=== PATIENT | female | born 1990 | race Caucasian/White ===

== ENCOUNTER 2018-08-16 06:57 | Inpatient (IN) | payer OTHER ==
[2018-08-16] MEDS ORDERED: Misoprostol 25 MCG (1/4 of 100 MCG) Tab VAG ONE (07:28)
[2018-08-16] MEDS ORDERED: Sodium Chloride 0.9% 10 ML Syringe FLUSH ONE (08:25)
--- NOTE | 2018-08-16 09:04 | PN ---
DATE SEEN: 08/16/2018 SUBJECTIVE: This is a 28-year-old, G1, P0, group B negative, EDC on 08/11, 40+ weeks, here for induction. Otherwise healthy. OBJECTIVE: heart tones 150s, reactive. Cervix is 80, 1 to 2, -3 anterior. ASSESSMENT: Group B negative, here for induction. PLAN: Check the patient and then place with the patient's permission. Risks and benefits were explained and I put Cytotec in and then will move on to Pitocin after 3 to 4 hours period. So, vaginal delivery is anticipated. /[id number] PE/MODL
[2018-08-16] MEDS ORDERED: Propofol 200 MG/20 ML SDV IV ONE (12:25)
[2018-08-16] MEDS ORDERED: Midazolam 1 MG/ML 2 ML SDV IV ONE (12:25)
--- NOTE | 2018-08-16 14:05 | PN ---
DATE SEEN: 08/16/2018 SUBJECTIVE: The patient is reji after the Cytotec. She says she can feel, though not terribly uncomfortable. OBJECTIVE: Cervix is 2 cm, 80, minus 2. ASSESSMENT: Induction, post dates. PLAN: AROM, clear fluid. Wait for 1 to 2 hours, and if she does not get into labor, then start oxytocin, and vaginal delivery is anticipated. /[id number] PE/MODL
[2018-08-16] MEDS: Lactated Ringers 1,000 ML IV SCH ×3 (14:43→18:04)
[2018-08-16] MEDS ORDERED: Nalbuphine 10 MG/1 ML Vial IVPUSH PRN (15:04)
[2018-08-16] MEDS ORDERED: FENTANYL IV ONE (16:10)
[2018-08-16] MEDS ORDERED: ROPIVACAINE IV ONE (16:10)
--- NOTE | 2018-08-16 16:53 | PCM.PNLD ---
Labor Progress Note - VS & Meds Vital Signs: Last Vital Signs Temp 97.6 F 08/16/18 07:06 Pulse 68 08/16/18 16:10 Resp 20 08/16/18 16:10 BP 113/65 08/16/18 16:10 Pulse Ox 100 08/16/18 16:10 Active Medications: Current Medications Oxytocin/Sodium Chloride (Pitocin In Ns 20 Units/1,000 Ml) 20 unit in 1,000 mls @ 6 mls/hr IV TITRATE AFSHIN; Protocol Lactated Ringer's (Ringers, Lactated) 1,000 mls @ 125 mls/hr IV ASDIRECTED AFSHIN Last Admin: 08/16/18 14:43 Dose: 125 mls/hr Nalbuphine HCl (Nubain) 10 mg IVPUSH Q4H PRN PRN Reason: Pain Discontinued Medications Misoprostol (Cytotec) 25 mcg VAG ONETIME ONE Stop: 08/16/18 07:29 Last Admin: 08/16/18 08:14 Dose: 25 mcg Sodium Chloride (Saline Flush) 10 ml FLUSH ONETIME ONE Stop: 08/16/18 08:26 Last Admin: 08/16/18 08:20 Dose: 10 ml - Uterine Contractions Uterine Monitoring Mode: External [place] Contraction Frequency (min): 2-4 Contraction Duration (sec): 30-60 Contraction Intensity: Moderate to Strong Uterine Resting Tone: Soft - Vaginal Exam Dilation (cm): 6 Effacement (Percent): 100 Station: 0 Cervical Position: Midposition Sterile Vaginal Exam Performed By: Balbina Esparza - Labor Progress (Free Text) Labor Progress: Epidural in and the pt is comfortable.
[2018-08-16] MEDS ORDERED: Naloxone 0.4 MG/ML SDV IVPUSH PRN (17:24)
[2018-08-16] MEDS ORDERED: diphenhydrAMINE 50 MG/ML SDV IV PRN (17:24)
[2018-08-16] MEDS ORDERED: Ondansetron 4 MG/2 ML SDV IVPUSH PRN (17:24)
[2018-08-16] MEDS ORDERED: ePHEDrine 50 MG/ML SDV IVPUSH PRN (17:24)
[2018-08-16] MEDS ORDERED: Promethazine 6.25 MG in Sodium Chloride 0.9% 50 ML IV PRN (17:24)
[2018-08-16] MEDS ORDERED: Promethazine 12.5 MG in Sodium Chloride 0.9% 50 ML IV PRN (17:24)
[2018-08-16] MEDS ORDERED: Lactated Ringers 500 ML IV SCH (17:30)
--- NOTE | 2018-08-16 19:35 | PCM.DEL ---
L & D Note - General Info Date of Service: 08/16/18 - Delivery Note Labor: Augmented by ARM (And Cytotec) Delivery Outcome: Livebirth Presentation: Left Occiput Anterior (EDIN) Nuchal Cord: None Anesthesia Type: Epidural, Local Anesthetic: Lidocaine (Xylocaine) 0.5% Plain Local Anesthetic Volume: 4cc Amniotic Fluid Description: Clear Laceration: 2nd Degree Suture type: Vicryl Suture size: 4-0 Placenta: Intact, Spontaneous Cord: 3 Vessels Resuscitation Needed: No [place]: Suctioned - General Info Date of Service: 08/16/18 Admission Dx/Problem (Free Text): 28-year-old EDC 08/12/1938 plus weeks comes for induction. Patient was given Cytotec then AROM. Went to complete and had an epidural. Baby is a little away. No nuchal cord. EBL less than 500. She had 2 periurethral lacerations was repaired with 4-0 Vicryl and second degree tear that was apparent with 4-0 Vicryl. Complications none. - Patient Data Vitals - Most Recent: Last Vital Signs Temp 97.6 F 08/16/18 07:06 Pulse 68 08/16/18 16:10 Resp 20 08/16/18 16:10 BP 113/65 08/16/18 16:10 Pulse Ox 100 08/16/18 16:10 Weight - Most Recent: 150 lb I&O - Last 24 Hours: Intake & Output 08/16/18 08/16/18 08/16/18 06:59 14:59 22:59 Output Total 400 150 Balance -400 -150 Med Orders - Current: Current Medications Diphenhydramine HCl (Benadryl) 25 mg IV ASDIRECTED PRN PRN Reason: Pruritus Ephedrine Sulfate (Ephedrine Sulfate) 5 mg IVPUSH ASDIRECTED PRN PRN Reason: Hypotension Oxytocin/Sodium Chloride (Pitocin In Ns 20 Units/1,000 Ml) 20 unit in 1,000 mls @ 6 mls/hr IV TITRATE AFSHIN; Protocol Lactated Ringer's (Ringers, Lactated) 1,000 mls @ 125 mls/hr IV ASDIRECTED AFSHIN Last Admin: 08/16/18 18:04 Dose: 999 mls/hr Lactated Ringer's (Ringers, Lactated) 1,000 mls @ 999 mls/hr IV BOLUS AFSHIN Promethazine HCl 6.25 mg/ (Sodium Chloride) 50.25 mls @ 200 mls/hr IV Q4H PRN PRN Reason: Nausea/Vomiting Promethazine HCl 12.5 mg/ (Sodium Chloride) 50.5 mls @ 200 mls/hr IV Q6H PRN PRN Reason: Nausea/Vomiting Nalbuphine HCl (Nubain) 10 mg IVPUSH Q4H PRN PRN Reason: Pain Naloxone HCl (Narcan) 0.1 mg IVPUSH ONETIME PRN PRN Reason: Sedation Ondansetron HCl (Zofran) 4 mg IVPUSH Q6H PRN PRN Reason: Nausea/Vomiting Discontinued Medications Misoprostol (Cytotec) 25 mcg VAG ONETIME ONE Stop: 08/16/18 07:29 Last Admin: 08/16/18 08:14 Dose: 25 mcg Sodium Chloride (Saline Flush) 10 ml FLUSH ONETIME ONE Stop: 08/16/18 08:26 Last Admin: 08/16/18 08:20 Dose: 10 ml - Problem List & Annotations (1) Vaginal delivery SNOMED Code(s): 513121593 Code(s): O80 - ENCOUNTER FOR FULL-TERM UNCOMPLICATED DELIVERY Status: Acute Current Visit: Yes - Problem List Review Problem List Initiated/Reviewed/Updated: Yes - My Orders Last 24 Hours: My Active Orders 08/16/18 07:00 Admission Status [Patient Status] [ADT] Routine 08/16/18 07:06 Communication Order [RC] ASDIRECTED Communication Order [RC] ASDIRECTED Communication Order [RC] ASDIRECTED Communication Order [RC] ASDIRECTED Non Stress Test [RC] Click to Edit Notify Provider [RC] PRN Notify Provider [RC] STAT Vital Signs [RC] PER UNIT ROUTINE 08/16/18 07:15 Oxytocin/Normal Saline [Pitocin in NS 20 Units/1,000 ML] 20 unit in 1,000 ml IV TITRATE 08/16/18 08:15 Lactated Ringers [Ringers, Lactated] 1,000 ml IV ASDIRECTED 08/16/18 12:45 Admission Status [Patient Status] [ADT] Routine 08/16/18 15:04 Nalbuphine [Nubain] 10 mg IVPUSH Q4H PRN 08/16/18 15:06 Epidural Catheter Management [OM.PC] Routine - Plan Plan:: 1. Regular diet. 2. Full code 3. Up ad octaviano. 4. H/H in a.m. 5. See postdelivery orders.
[2018-08-16] MEDS ORDERED: Acetaminophen/Codeine 300-30 MG Tab PO PRN (19:37)
[2018-08-16] MEDS ORDERED: Oxytocin 10 Units/1 ML SDV IM ONE (19:43)
[2018-08-16] MEDS: Ibuprofen 600 MG Tab PO PRN (20:04)
[2018-08-17] MEDS: Ibuprofen 600 MG Tab PO PRN (05:17)
[2018-08-17] MEDS: Prenatal Multivitamin with Calcium/Folic Acid/Fe Fumarate Cap PO SCH (09:30)
--- NOTE | 2018-08-17 09:47 | PCM.PN ---
- General Info Date of Service: 08/17/18 Admission Dx/Problem (Free Text): Patient states she is doing well. She says her pain is controlled by ibuprofen. Not much bleeding or abdominal pain or leg swelling. - Patient Data Vitals - Most Recent: Last Vital Signs Temp 97.9 F 08/17/18 08:00 Pulse 73 08/17/18 08:00 Resp 20 08/17/18 08:00 BP 112/69 08/17/18 08:00 Pulse Ox 97 08/17/18 08:00 Weight - Most Recent: 150 lb I&O - Last 24 Hours: Intake & Output 08/16/18 08/17/18 08/17/18 22:59 06:59 14:59 Intake Total 2154 Output Total 150 Balance 2003 Lab Results Last 24 Hours: Laboratory Results - last 24 hr 08/17/18 Range/Units 06:17 Hgb 11.7 (11.5-15.5) g/dL Hct 34.5 (30.0-51.3) % Med Orders - Current: Current Medications Acetaminophen/Codeine Phosphate (Tylenol With Codeine No.3 300mg/30mg) 1 tab PO Q4H PRN PRN Reason: Pain (moderate 4-6) Diphenhydramine HCl (Benadryl) 25 mg IV ASDIRECTED PRN PRN Reason: Pruritus Ephedrine Sulfate (Ephedrine Sulfate) 5 mg IVPUSH ASDIRECTED PRN PRN Reason: Hypotension Oxytocin/Sodium Chloride (Pitocin In Ns 20 Units/1,000 Ml) 20 unit in 1,000 mls @ 6 mls/hr IV TITRATE AFSHIN; Protocol Lactated Ringer's (Ringers, Lactated) 1,000 mls @ 125 mls/hr IV ASDIRECTED AFSHIN Last Admin: 08/16/18 18:04 Dose: 999 mls/hr Promethazine HCl 6.25 mg/ (Sodium Chloride) 50.25 mls @ 200 mls/hr IV Q4H PRN PRN Reason: Nausea/Vomiting Promethazine HCl 12.5 mg/ (Sodium Chloride) 50.5 mls @ 200 mls/hr IV Q6H PRN PRN Reason: Nausea/Vomiting Ibuprofen (Motrin) 600 mg PO Q6H PRN PRN Reason: Pain Last Admin: 08/17/18 05:17 Dose: 600 mg Measles/Mumps/Rubella Vaccine Live (M-M-R Ii Vaccine) 0.5 ml SUBCUT .ONCE ONE Stop: 08/18/18 08:01 Naloxone HCl (Narcan) 0.1 mg IVPUSH ONETIME PRN PRN Reason: Sedation Ondansetron HCl (Zofran) 4 mg IVPUSH Q6H PRN PRN Reason: Nausea/Vomiting Multivit/Folic Acid/Iron (-U) 1 each PO DAILY AFSHIN Last Admin: 08/17/18 09:30 Dose: 1 each Discontinued Medications Lactated Ringer's (Ringers, Lactated) 1,000 mls @ 999 mls/hr IV BOLUS [facility] Misoprostol (Cytotec) 25 mcg VAG ONETIME ONE Stop: 08/16/18 07:29 Last Admin: 08/16/18 08:14 Dose: 25 mcg Nalbuphine HCl (Nubain) 10 mg IVPUSH Q4H PRN PRN Reason: Pain Oxytocin (Pitocin) 10 unit IM ONETIME ONE Stop: 08/16/18 19:44 Last Admin: 08/16/18 18:58 Dose: 10 unit Sodium Chloride (Saline Flush) 10 ml FLUSH ONETIME ONE Stop: 08/16/18 08:26 Last Admin: 08/16/18 08:20 Dose: 10 ml - Exam General: Alert, Oriented, Cooperative GI/Abdominal Exam: Other (Fundus firm) Extremities: Pedal Edema - Problem List & Annotations (1) Vaginal delivery SNOMED Code(s): 788250624 Code(s): O80 - ENCOUNTER FOR FULL-TERM UNCOMPLICATED DELIVERY Status: Acute Current Visit: Yes - Problem List Review Problem List Initiated/Reviewed/Updated: Yes - My Orders Last 24 Hours: My Active Orders 08/16/18 15:06 Epidural Catheter Management [OM.PC] Routine 08/16/18 19:37 Patient Status [ADT] Routine May Shower [RC] ASDIRECTED Up ad Chrissie [RC] ASDIRECTED Vital Signs [RC] PFP Acetaminophen/Codeine [Tylenol with Codeine No.3 300MG/30MG] 1 tab PO Q4H PRN Ibuprofen [Motrin] 600 mg PO Q6H PRN Assess Lochia [WOMSER] Per Unit Routine Assess Uterine Involution [WOMSER] Per Unit Routine Breast Pump [WOMSER] Per Unit Routine Ice Therapy [OM.PC] Per Unit Routine Perineal Care [OM.PC] Per Unit Routine Sitz Bath [OM.PC] Per Unit Routine Resuscitation Status Routine 08/16/18 19:38 Peripheral IV Discontinue [OM.PC] Routine 08/16/18 Dinner Regular Diet [DIET] 08/17/18 08:01 Vaccines to be Administered [RC] PER UNIT ROUTINE 08/17/18 09:00 Vit/FA/Fe Fumarate [-U] 1 each PO DAILY 08/18/18 08:00 Measles, Mumps & Rubella [M-M-R II Vaccine] 0.5 ml SUBCUT .ONCE ONE - Plan Plan:: Continue current care. Hemoglobin is 11.7.
[2018-08-18] MEDS ORDERED: Measles, Mumps & Rubella Vaccine 0.5 ML SDV SUBCUT ONE (08:00)
[2018-08-18 08:07] VITALS: BP 114/66
--- NOTE | 2018-08-18 09:16 | PCM.DCSUM1 ---
Discharge Summary - Hospital Course Free Text/Narrative:: Hospital course-patient breast-fed. The post day one hemoglobin is above 10. She required no medication for pain control. Her bleeding slowed down abdomen was soft and she is breast-feeding and her milk came in. Discharged to home on ibuprofen when necessary and recheck in 6 weeks for . Brief History: This is a 28-year-old female 1 para 0 came in for postdates past 40 weeks for induction. She was given Cytotec and then a round with clear fluid. When I delivered healthy baby girl. See delivery note. Diagnosis: Stroke: No - Discharge Data Discharge Date: 08/18/18 Discharge Disposition: Home, Self-Care 01 Condition: Good - Discharge Diagnosis/Problem(s) (1) Vaginal delivery SNOMED Code(s): 785004930 ICD Code: O80 - ENCOUNTER FOR FULL-TERM UNCOMPLICATED DELIVERY Status: Acute Current Visit: Yes - Patient Instructions Diet: Regular Diet as Tolerated Activity: As Tolerated Driving: May Drive Today Showering/Bathing: May Shower Notify Provider of: Fever, Increased Pain, Swelling and Redness, Drainage, Nausea and/or Vomiting Other/Special Instructions: 1. Recheck for check in 6 weeks. 2. Ibu for pain OC prn. - Discharge Plan Home Medications: Home Meds Cmb#95/Iron/FA/DHA [ + Dha Combo Pack] 1 tab PO DAILY 08/15/18 [History] Patient Handouts: , Baby Blues, Labor Induction, Hand Washing, [id number], Home Care Instructions for Mom, Augmentation of Labor, Care After Vaginal Delivery - Discharge Summary/Plan Comment DC Time >30 min.: No - Patient Data Vitals - Most Recent: Last Vital Signs Temp 97.7 F 08/18/18 07:43 Pulse 95 08/17/18 20:10 Resp 16 08/18/18 07:43 BP 114/66 08/18/18 07:43 Pulse Ox 97 08/18/18 07:43 Weight - Most Recent: 150 lb Med Orders - Current: Current Medications Acetaminophen/Codeine Phosphate (Tylenol With Codeine No.3 300mg/30mg) 1 tab PO Q4H PRN PRN Reason: Pain (moderate 4-6) Diphenhydramine HCl (Benadryl) 25 mg IV ASDIRECTED PRN PRN Reason: Pruritus Ephedrine Sulfate (Ephedrine Sulfate) 5 mg IVPUSH ASDIRECTED PRN PRN Reason: Hypotension Oxytocin/Sodium Chloride (Pitocin In Ns 20 Units/1,000 Ml) 20 unit in 1,000 mls @ 6 mls/hr IV TITRATE AFSHIN; Protocol Lactated Ringer's (Ringers, Lactated) 1,000 mls @ 125 mls/hr IV ASDIRECTED AFSHIN Last Admin: 08/16/18 18:04 Dose: 999 mls/hr Promethazine HCl 6.25 mg/ (Sodium Chloride) 50.25 mls @ 200 mls/hr IV Q4H PRN PRN Reason: Nausea/Vomiting Promethazine HCl 12.5 mg/ (Sodium Chloride) 50.5 mls @ 200 mls/hr IV Q6H PRN PRN Reason: Nausea/Vomiting Ibuprofen (Motrin) 600 mg PO Q6H PRN PRN Reason: Pain Last Admin: 08/17/18 05:17 Dose: 600 mg Naloxone HCl (Narcan) 0.1 mg IVPUSH ONETIME PRN PRN Reason: Sedation Ondansetron HCl (Zofran) 4 mg IVPUSH Q6H PRN PRN Reason: Nausea/Vomiting Multivit/Folic Acid/Iron (-U) 1 each PO DAILY [facility] Last Admin: 08/17/18 09:30 Dose: 1 each Discontinued Medications Lactated Ringer's (Ringers, Lactated) 1,000 mls @ 999 mls/hr IV BOLUS [facility] Measles/Mumps/Rubella Vaccine Live (M-M-R Ii Vaccine) 0.5 ml SUBCUT .ONCE ONE Stop: 08/18/18 08:01 Misoprostol (Cytotec) 25 mcg VAG ONETIME ONE Stop: 08/16/18 07:29 Last Admin: 08/16/18 08:14 Dose: 25 mcg Nalbuphine HCl (Nubain) 10 mg IVPUSH Q4H PRN PRN Reason: Pain Oxytocin (Pitocin) 10 unit IM ONETIME ONE Stop: 08/16/18 19:44 Last Admin: 08/16/18 18:58 Dose: 10 unit Sodium Chloride (Saline Flush) 10 ml FLUSH ONETIME ONE Stop: 08/16/18 08:26 Last Admin: 08/16/18 08:20 Dose: 10 ml
--- NOTE | 2018-08-18 09:18 | PCM.PNPP ---
- General Info Date of Service: 08/18/18 Admission Dx/Problem (Free Text): Agent without concerns. She's not using medicine for pain and says her per name is feeling good. She has a very minimal bleeding. No coming in and she is breast-feeding and that's going well too. - Patient Data Vital Signs - Most Recent: Last Vital Signs Temp 97.7 F 08/18/18 07:43 Pulse 95 08/17/18 20:10 Resp 16 08/18/18 07:43 BP 114/66 08/18/18 07:43 Pulse Ox 97 08/18/18 07:43 Weight - Most Recent: 150 lb Med Orders - Current: Current Medications Acetaminophen/Codeine Phosphate (Tylenol With Codeine No.3 300mg/30mg) 1 tab PO Q4H PRN PRN Reason: Pain (moderate 4-6) Diphenhydramine HCl (Benadryl) 25 mg IV ASDIRECTED PRN PRN Reason: Pruritus Ephedrine Sulfate (Ephedrine Sulfate) 5 mg IVPUSH ASDIRECTED PRN PRN Reason: Hypotension Oxytocin/Sodium Chloride (Pitocin In Ns 20 Units/1,000 Ml) 20 unit in 1,000 mls @ 6 mls/hr IV TITRATE AFSHIN; Protocol Lactated Ringer's (Ringers, Lactated) 1,000 mls @ 125 mls/hr IV ASDIRECTED AFSHIN Last Admin: 08/16/18 18:04 Dose: 999 mls/hr Promethazine HCl 6.25 mg/ (Sodium Chloride) 50.25 mls @ 200 mls/hr IV Q4H PRN PRN Reason: Nausea/Vomiting Promethazine HCl 12.5 mg/ (Sodium Chloride) 50.5 mls @ 200 mls/hr IV Q6H PRN PRN Reason: Nausea/Vomiting Ibuprofen (Motrin) 600 mg PO Q6H PRN PRN Reason: Pain Last Admin: 08/17/18 05:17 Dose: 600 mg Naloxone HCl (Narcan) 0.1 mg IVPUSH ONETIME PRN PRN Reason: Sedation Ondansetron HCl (Zofran) 4 mg IVPUSH Q6H PRN PRN Reason: Nausea/Vomiting Multivit/Folic Acid/Iron (-U) 1 each PO DAILY AFSHIN Last Admin: 08/17/18 09:30 Dose: 1 each Discontinued Medications Lactated Ringer's (Ringers, Lactated) 1,000 mls @ 999 mls/hr IV BOLUS AFSHIN Measles/Mumps/Rubella Vaccine Live (M-M-R Ii Vaccine) 0.5 ml SUBCUT .ONCE ONE Stop: 08/18/18 08:01 Misoprostol (Cytotec) 25 mcg VAG ONETIME ONE Stop: 08/16/18 07:29 Last Admin: 08/16/18 08:14 Dose: 25 mcg Nalbuphine HCl (Nubain) 10 mg IVPUSH Q4H PRN PRN Reason: Pain Oxytocin (Pitocin) 10 unit IM ONETIME ONE Stop: 08/16/18 19:44 Last Admin: 08/16/18 18:58 Dose: 10 unit Sodium Chloride (Saline Flush) 10 ml FLUSH ONETIME ONE Stop: 08/16/18 08:26 Last Admin: 08/16/18 08:20 Dose: 10 ml - Interaction Support Person: - Recovery Exam Fundal Tone: Firm Fundal Level: 3 Fingerbreadths Below Umbilicus Fundal Placement: Midline Lochia Amount: Small Lochia Color: Rubra/Red Perineum Description: Intact, Minimal Bruising/Swelling Episiotomy/Laceration: Approximated Bladder Status: Voiding Urinary Elimination: Voided - Exam General: Alert, Oriented, Cooperative Neck: Supple Lungs: Normal Respiratory Effort GI/Abdominal Exam: Other (Fundus firm) Extremities: No Pedal Edema - Problem List & Annotations (1) Vaginal delivery SNOMED Code(s): 454545035 Code(s): O80 - ENCOUNTER FOR FULL-TERM UNCOMPLICATED DELIVERY Status: Acute Current Visit: Yes - Problem List Review Problem List Initiated/Reviewed/Updated: Yes - My Orders Last 24 Hours: My Active Orders 08/17/18 09:00 Vit/FA/Fe Fumarate [-U] 1 each PO DAILY 08/18/18 07:55 Ready for Discharge [RC] PER UNIT ROUTINE - Plan Plan:: Discharged home. Recheck in 6 weeks for care.
[2018-08-18] MEDS: Prenatal Multivitamin with Calcium/Folic Acid/Fe Fumarate Cap PO SCH (10:09)
== END 2018-08-18 12:26 | disposition home or self-care (01) | DRG 807 ==
LOC: FB.OB 06:57 → OBSVTOIN 12:45 → FB.OB 12:45
PROVIDERS: ADMIT Family Medicine; ATTEND Family Medicine
PROC: 3E0P7VZ Introduction of Hormone into Female Reproductive, Via Natural or Artificial Opening (ICD-10-PCS; principal; 2018-08-16)
PROC: 0KQM0ZZ Repair Perineum Muscle, Open Approach (ICD-10-PCS; principal; 2018-08-16)
PROC: 10907ZC Drainage of Amniotic Fluid, Therapeutic from Products of Conception, Via Natural or Artificial Opening (ICD-10-PCS; principal; 2018-08-16)
PROC: 0UQMXZZ Repair Vulva, External Approach (ICD-10-PCS; principal; 2018-08-16)
PROC: 10E0XZZ Delivery of Products of Conception, External Approach (ICD-10-PCS; principal; 2018-08-16)
PROC: 00HU33Z Insertion of Infusion Device into Spinal Canal, Percutaneous Approach (ICD-10-PCS; 2018-08-16)
PROC: 3E0R3BZ Introduction of Anesthetic Agent into Spinal Canal, Percutaneous Approach (ICD-10-PCS; 2018-08-16)
DX: O48.0 Post-term pregnancy (principal); Z37.0 Single live birth; Z3A.40 40 weeks gestation of pregnancy; O70.1 Second degree perineal laceration during delivery; O71.82 Other specified trauma to perineum and vulva
CPT/HCPCS: 36415; 59409; 85014; 85018; 90471; 90707; A9270-GY; J2250; J2590; J2704; J2795; J3010; J7120